=== PATIENT | female | born 1945 | race Native Hawaiian/Other Pacific Islander ===

== ENCOUNTER 2018-03-28 08:04 | Day surgery (SDC) | payer MEDICARE ==
[2018-03-28] MEDS ORDERED: Lactated Ringer's 1,000 ML IV ONE (09:40)
[2018-03-28] MEDS ORDERED: Lidocaine Hydrochloride 10 ML INJ ONE (09:42)
[2018-03-28] MEDS ORDERED: Propofol 10 mg/ml Inj (20 ML) ONE ×3 (09:42→10:02)
[2018-03-28 10:34] VITALS: TEMP 96.8
[2018-03-28 11:13] VITALS: O2SAT 99
[2018-03-28 12:33] VITALS: BP 139/58; PULSE 61; RESP 18
== END 2018-03-28 12:18 | disposition home or self-care (01) ==
LOC: C.ENDO 08:04
PROVIDERS: ATTEND Internal Medicine Gastroenterology
DX: Z12.11 Encounter for screening for malignant neoplasm of colon (principal); K64.0 First degree hemorrhoids; K29.50 Unspecified chronic gastritis without bleeding; K44.9 Diaphragmatic hernia without obstruction or gangrene; K21.9 Gastro-esophageal reflux disease without esophagitis; Z87.19 Personal history of other diseases of the digestive system; E78.5 Hyperlipidemia, unspecified; I10 Essential (primary) hypertension
CPT/HCPCS: 43239; 88305; 88342; G0105; J2704; J7120